=== PATIENT | male | born 1970 ===

== ENCOUNTER 2023-12-06 09:05 | Outpatient (CLI) | payer OTHER, SELFPAY ==
--- NOTE | ~2023-12-06 | MR_ITS ---
EXAMINATION: MR knee RT wo con DATE: 12/06/2023 09:47 INDICATION: Meniscal injury with right knee pain TECHNIQUE: Magnetic resonance imaging (MRI) of the right knee was performed without intravenous contr ast. Sequences included coronal PD-weighted FSE, coronal PD-weighted FS FSE, sagittal T2-weighted FS E, sagittal PD-weighted FS FSE and axial PD weighted fat saturated FSE. COMPARISON: None. FINDINGS: Medial compartment: Complex medial meniscal tear which includes a longitudinal horizontal tear plane extending from the b elen into the posterior horn and with vertically oriented radial tear plane extending across the junct ion of the body and posterior horn. Partial-thickness cartilage loss with scattered chondral surface regularity along the medial tibial plateau and weightbearing medial femoral condyle. Small focus of u nderlying subarticular edema-like signal change at the tibial plateau and along the apex of the media l intercondylar eminence. Lateral compartment: Lateral meniscus is normal. Articular cartilage is normal. Patellofemoral compartment: Partial-thickness chondral ulceration and deep chondral fissuring with underlying small focus of suba rticular edema-like signal change and tiny central subchondral osteophytes at the medial patellar fac et. Additional deep chondral fissuring without degenerative subchondral changes at the caudal half of the trochlear groove. Ligaments and tendons: Anterior and posterior cruciate ligaments are normal. The medial collateral ligament and fibular kaylee ateral ligament complex are normal. The extensor mechanism is normal. The visualized medial and later al hamstring tendons as well as the iliotibial band are normal. Fluid: Physiologic amount of fluid in the joint space. No loose osteochondral bodies identified. Osseous/other: Normal marrow signal. No fracture or pathologic marrow replacing process. IMPRESSION: 1. Complex medial meniscal tear. 2. 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 Reviewed, dictated and finalized at location L. IMPRESSION: 1. Complex medial meniscal tear. 2. 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
== END 2023-12-06 09:06 ==
DX: S83.8X1A Sprain of other specified parts of right knee, initial encounter (principal); M25.561 Pain in right knee; S83.231A Complex tear of medial meniscus, current injury, right knee, initial encounter; M17.11 Unilateral primary osteoarthritis, right knee; M94.261 Chondromalacia, right knee
CPT/HCPCS: 73721